=== PATIENT | female | born 1990 | race Caucasian/White ===

== ENCOUNTER 2018-05-20 13:39 | Emergency (ER) | payer SELFPAY ==
[~2018-05-20] VITALS: Ht 160 cm; Wt 109.0 kg
[~2018-05-20 13:39] MED LIST: [UNRECOGNIZED DRUG - OTHER]
[2018-05-20 13:42] VITALS: BP 138/95
--- NOTE | 2018-05-20 13:48 | NUR ---
PATIENT AMBULATED TO BED 8
--- NOTE | 2018-05-20 13:57 | NUR ---
28 YO F BIB SELF W/ C/O RIGHT HAND PAIN S/P FALLING DOWN THE STAIRS. RIGHT HAND W/ +DEFORMITY TO MIDDLE FINGER, +EDEMA, +ERYTHEMA. PT REPORTS THROBBING PAIN. CAP REFILL LESS THAN 3 SEC OF EFFECTED HAND. PULSES STRONG. COLOR APPROPRIATE FOR ETHNICITY. PT STATES PAIN 02/14. HX DENIES RX DENIES
[2018-05-20] MEDS ORDERED: IBUPROFEN 800 MG TAB PO ONE (14:30)
[2018-05-20] MEDS ORDERED: traMADol 50 MG TAB PO ONE (14:30)
[2018-05-20 14:54] VITALS: BP 132/90
--- NOTE | 2018-05-20 14:54 | NUR ---
Patient discharged with v/s stable. Written and verbal after care instructions given and explained. Patient alert, oriented and verbalized understanding of instructions. Ambulatory with steady gait. All questions addressed prior to discharge. ID band removed. Patient advised to follow up with PMD. Rx of TRAMADOL 50MG, MOTRIN 800MG given. Patient educated on indication of medication including possible reaction and side effects. Opportunity to ask questions provided and answered.
== END 2018-05-20 14:54 | disposition home or self-care (01) ==
LOC: MED 13:39
DX: S62.640A Nondisplaced fracture of proximal phalanx of right index finger, initial encounter for closed fracture (principal); S62.642A Nondisplaced fracture of proximal phalanx of right middle finger, initial encounter for closed fracture; Z79.899 Other long term (current) drug therapy; W10.8XXA Fall (on) (from) other stairs and steps, initial encounter; Y93.89 Activity, other specified; Y92.89 Other specified places as the place of occurrence of the external cause; Y99.8 Other external cause status
CPT/HCPCS: 73130; 99283

== ENCOUNTER 2018-08-08 12:06 | Emergency (ER) | payer OTHER ==
[~2018-08-08] VITALS: Ht 160 cm; Wt 106.6 kg
[2018-08-08 12:20] VITALS: BP 129/57
--- NOTE | 2018-08-08 12:36 | NUR ---
PT BIB SELF TO THE ED WITH THE CHIEF C/O LUMP ON RIGHT BUTTOCK. PURPLISH, BLISTER LIKE LUMP NOTED ON RIGHT BUTTOCK. SOFT TO TOUCH. TENDERNESS PRESENT. NO DRAINAGE. DENIES ANY RECENT FEVER. DENIES ANY OTHER PROBLEM AT THIS TIME. STATES PAIN 0/10 AT THIS TIME. ER MD AWARE.
--- NOTE | 2018-08-08 12:41 | NUR ---
PT BEING SEEN BY ER AT THIS TIME.
[2018-08-08] MEDS ORDERED: ETHYL CHLORIDE 105 ML SPR TP ONE (12:45)
--- NOTE | 2018-08-08 13:12 | NUR ---
ETHYL CHLORIDE LEFT AT BEDSIDE FOR
--- NOTE | 2018-08-08 13:22 | NUR ---
Dr. Kelsey evaluating patient at bedside.
[2018-08-08 13:39] VITALS: BP 128/55
--- NOTE | 2018-08-08 13:39 | NUR ---
Patient discharged with v/s stable. Written and verbal after care instructions given and explained. Patient verbalized understanding. Ambulatory with steady gait. All questions addressed prior to discharge. Advised to follow up with PMD.
== END 2018-08-08 13:39 | disposition home or self-care (01) ==
LOC: MED 12:06
DX: S30.820A Blister (nonthermal) of lower back and pelvis, initial encounter (principal); Z79.899 Other long term (current) drug therapy; X58.XXXA Exposure to other specified factors, initial encounter; Y93.89 Activity, other specified; Y92.89 Other specified places as the place of occurrence of the external cause; Y99.8 Other external cause status
CPT/HCPCS: 99282

== ENCOUNTER 2019-03-11 22:15 | Emergency (ER) | payer OTHER ==
[~2019-03-11] VITALS: Ht 160 cm; Wt 108.9 kg
[2019-03-11 22:25] VITALS: BP 112/77
--- NOTE | 2019-03-11 22:28 | NUR ---
TO LOBBY A/W BED AMBULATORY
--- NOTE | 2019-03-12 00:05 | NUR ---
PT TO ER BED 3
--- NOTE | 2019-03-12 00:12 | NUR ---
28/F PRESENTED TO ED WITH C/O COUGH X 3 WEEKS, 18 WEEKS LMP NOVEMBER 05. STATES SHE HAS HAD A COUGH ON AND OFF FOR 3 WEEKS. DRY COUGH NOTED. DENIES N/V/D/F. STATES CHEST FEELS SOB UPON COUGHING. EVEN UNLABORED BREATHING. CLEAR [place]ASIA LUNG SOUNDS. O2 SAT 97%. VSS. DENIES TAKING ANY MEDS TO TX SYMTOMS. AT BEDSIDE. NO SIGNS OF DISTRESS. WILL CONTINUE TO MONITOR.
[2019-03-12] MEDS ORDERED: predniSONE 20 MG TAB PO ONE (01:20)
[2019-03-12] MEDS ORDERED: ALBUTEROL 0.083% 2.5 MG/3 ML NEBU INH ONE (01:20)
--- NOTE | 2019-03-12 01:45 | NUR ---
X RAY AT BEDSIDE
--- NOTE | 2019-03-12 01:55 | NUR ---
CALLED RT AND FOLLOWED UP WITH ORDERED BREATHING TREATMENT. RT WILL GIVE PT BREATHING TX.
--- NOTE | 2019-03-12 03:30 | NUR ---
HEART TONES COMPLETED BY LEONCIO
[2019-03-12 04:10] VITALS: BP 120/78
--- NOTE | 2019-03-12 04:10 | NUR ---
Patient discharged with v/s stable. Written and verbal after care instructions given and explained. Patient alert, oriented and verbalized understanding of instructions. Ambulatory with steady gait. All questions addressed prior to discharge. ID band removed. Patient advised to follow up with PMD. Rx of AZITHROMYCIN, PREDNISONE given. Patient educated on indication of medication including possible reaction and side effects. Opportunity to ask questions provided and answered.
== END 2019-03-12 04:10 | disposition home or self-care (01) ==
LOC: MED 22:15
DX: O26.892 Other specified pregnancy related conditions, second trimester (principal); J45.909 Unspecified asthma, uncomplicated; J40 Bronchitis, not specified as acute or chronic; R51 Headache; M54.9 Dorsalgia, unspecified; Z3A.18 18 weeks gestation of pregnancy; Z79.899 Other long term (current) drug therapy
CPT/HCPCS: 71045; 94640; 99283; J7512; J7613; Q0092